=== PATIENT | male | born 1950 | race Caucasian/White ===

== ENCOUNTER → 2020-02-17 | Outpatient (CLI) | payer BC ==
[~2020-02-17] VITALS: Ht 177.8 cm; Wt 77.1 kg
[~2020-02-17] MED LIST: FISH OIL 1,0001 EAC9 PO; PRAVACHOL40 MG PO; PRILOSEC OTC20 MG PO; TYLENOL325 M1 PO
--- NOTE | 2020-02-18 16:06 | PATH ---
[facility] [place] [address] PATHOLOGY RPT PROCEDURE Name: JEREMIAH RAMIRES Room #: REG ARGENIS Jose C.#: [id number] Admission: 02/17/20 Date of : 52 Discharge: Report #: [id number] Path Case #: [id number] [facility] Accession Number: [id number] . 01 Material submitted: . PART A: colon - ASCENDING COLON POLYP. Modifiers: ascending PART B: splenic flexure - SPLENIC FLEXURE POLYP . 01 Clinical history: . Pre-op diagnosis: Screening Post-op diagnosis: Colon polyps . 02 Diagnosis: A. Polyp, ascending colon polyp, endoscopic biopsy: - Hyperplastic polyp. - Negative for dysplasia. . B. Polyp, splenic flexure polyp, endoscopic biopsy: - Hyperplastic polyp. - Negative for dysplasia. . (IUV:mml; 02/18/2020) QLM 02/18/2020 1208 Local . 02 Electronically signed: . Gillian Lopez MD, Pathologist NPI- [id number] . 01 Gross description: . A. The specimen is received in formalin, labeled "Jeremiah Ramires, ascending colon polyp". Received are two segments of pale hubbard soft tissue ranging in size from 0.6 to 0.7 cm in maximum dimensions. The specimen is submitted entirely in cassette A1. . B. The specimen is received in formalin, labeled "Jeremiah Ramires, splenic polyp". Received is a segment of pale hubbard soft tissue measuring 0.6 cm in maximum dimensions. The specimen is submitted entirely in cassette B1. (CAA; 02/17/2020) QAC/QAC 02/17/2020 1656 Local . 02 Pathologist provided ICD-10: K63.5, Z12.11 . 02 CPT . 928092, [id number] Specimen Comment: A courtesy copy of this report has been sent to [phone] Specimen Comment: Report sent to / DR PEREZ [address] [address] PATHOLOGY RPT PROCEDURE Name: JEREMIAH RAMIRES Room #: REG [facility]#: [id number] Admission: 02/17/20 Date of : 52 Discharge: Report #: [id number] Path Case #: [id number] Performed at: [facility] [place] [address], [place] [id number] MD Ivan Badillo MD Phone: [phone] Performed at: [address] [id number] MD Gillian Lopez MD Phone: [phone]
== END | disposition home or self-care (01) ==
LOC: GI 09:04
PROVIDERS: ATTEND Internal Medicine Gastroenterology
DX: Z12.11 Encounter for screening for malignant neoplasm of colon (principal); K63.5 Polyp of colon; K57.30 Diverticulosis of large intestine without perforation or abscess without bleeding; K64.8 Other hemorrhoids; E78.00 Pure hypercholesterolemia, unspecified; K21.9 Gastro-esophageal reflux disease without esophagitis; Z98.890 Other specified postprocedural states; Z79.899 Other long term (current) drug therapy; Z87.891 Personal history of nicotine dependence; Z11.59 Encounter for screening for other viral diseases; Z98.41 Cataract extraction status, right eye; Z98.42 Cataract extraction status, left eye; Z88.8 Allergy status to other drugs, medicaments and biological substances
CPT/HCPCS: 62110; 62900